=== PATIENT | female | born 1980 | race Caucasian/White ===

== ENCOUNTER 2017-10-08 14:52 | Emergency (ER) | payer BC ==
[2017-10-08 14:58] VITALS: BP 122/66
== END 2017-10-08 16:20 | disposition left against medical advice (07) ==
LOC: ED 14:52
DX: R10.9 Unspecified abdominal pain (principal); Z53.21 Procedure and treatment not carried out due to patient leaving prior to being seen by health care provider

== ENCOUNTER 2018-11-22 15:05 | Emergency (ER) | payer BC ==
[2018-11-22 19:41] LABS: ABS Basophils 0.1 10^3/ul (0-0.2); ABS Eosinophils 0.2 10^3/ul (0-0.6); ABS Monocytes 0.7 10^3/ul (0-0.8); ABS Neutrophils 7.2 10^3/ul (1.5-7.7); Eosinophil % 1.8 %; Hematocrit 35 % (35-47); Hemoglobin 11.7 g/dL (12.0-16.0); Lymphocyte % 26.4 %; Mean Corpuscular HGB Conc 33 g/dL (31-36); Mean Corpuscular Hemoglobin 33 pg (27-31); Mean Corpuscular Volume 99 fL (80-97); Mean Platelet Volume 7.7 fL (7.4-10.4); Platelet Count 351 10^3/uL (150-450); Red Blood Count 3.58 10^6 /uL (3.70-4.87); Red Cell Distribution Width 14 % (10.5-15); White Blood Count 11.2 10^3/uL (3.5-10.8)
[2018-11-22 19:47] LABS: Urine Appearance Clear; Urine Bacteria 2+ (Absent); Urine Bilirubin Negative (Negative); Urine Blood 1+ (Negative); Urine Color Yellow; Urine Glucose Negative (Negative); Urine Ketones Negative (Negative); Urine Nitrite Negative (Negative); Urine Protein Negative (Negative); Urine Red Blood Cell Trace(0-2/hpf) (Absent); Urine Specific Gravity 1.017 (1.010-1.030); Urine Squamous Epithelial Cell Present (Absent); Urine Urobilinogen Negative (Negative); Urine White Blood Cell Absent (Absent)
[2018-11-22 19:58] LABS: Albumin 4.6 g/dL (3.2-5.2); Albumin/Globulin Ratio 1.3 (1-3); BUN/Creatinine Ratio 27.3 (8-20); C Reactive Protein 22.46 mg/L (<8.01); Calcium 9.8 mg/dL (8.6-10.3); EGFR African American 121.9 (>60); EGFR Non-African American 100.8 (>60); Globulin 3.5 g/dL (2-4); Potassium 3.9 mmol/L (3.5-5.0); Total Bilirubin 0.3 mg/dL (0.2-1.0); Total Protein 8.1 g/dL (6.4-8.9)
--- NOTE | 2018-11-22 20:00 | ED ---
Abdominal Pain/Female - HPI Summary HPI Summary: The patient is a 38 y/o F presenting to [facility] with a chief complaint of sudden onset pelvic pain starting three days ago that moved into the lower abdomen last night, primarily in the RLQ. The pain is intermittent, but when palpated, the pain is aggravated. She attempted to relieve the pain using a heating pad to mild relief. Currently, the pain is rated 5/10 in severity, and is described as a pressure. She additionally notes that she had an episode of hematochezia last week, and she has since been mostly constipated with a few episodes of small, loose BMs. She denies nausea, vomiting, dietary changes, and vaginal bleeding. She also states that she had pulled some abdominal muscles a few weeks ago secondary to a cough due to a common cold. She reports that she went to urgent care today for her symptoms, but they were concerned due to the site of pain. She has an IUD with LNMP prior to April 2018. No medical hx, but uses 0.5mg Lorazepam as sleeping aid occasionally. Surgical hx of ectopic and Cesarian section. No appendectomy or cholecystectomy. Current smoker, weekly EtOH, no substance use. - History of Current Complaint Chief Complaint: EDAbdPain Stated Complaint: ABD PAIN PER PT Time Seen by Provider: 11/22/18 19:48 Hx Obtained From: Patient Onset/Duration: Sudden Onset, Lasting Days - three, Worse Since - last night Timing: Intermittent Episode Lasting - minutes Severity Initially: Mild Severity Currently: Moderate Pain Intensity: 5 Pain Scale Used: 0-10 Numeric Location: Other - pelvic pain Radiates: Yes Radiates to: Other - bilateral lower quadrants with pain worse on the right Character: Other: - pressure Aggravating Factor(s): Other: - palpation of lower abd Alleviating Factor(s): Other: - mild relief with heating pad Associated Signs and Symptoms: Positive: Constipation, Blood in Stool - one episode a week ago, Diarrhea. Negative: Decreased Appetite, Vaginal Bleeding, Nausea, Vomiting Allergies/Adverse Reactions: Allergies Allergy/AdvReac Type Severity Reaction Status Date / Time No Known Allergies Allergy Verified 11/22/18 15:25 Home Medications: Home Medications LORazepam [Lorazepam] 0.5 mg PO BEDTIME PRN 11/22/18 [History Confirmed 11/22/18 ] PMH/Surg Hx/FS Hx/Imm Hx Endocrine/Hematology History: Denies: Hx Diabetes Cardiovascular History: Denies: Hx Hypercholesterolemia, Hx Hypertension - Surgical History Surgery Procedure, Year, and Place: ectopic , Cesarian section Infectious Disease History: No Infectious Disease History: Denies: Traveled Outside the [place] in Last 30 Days - Family History Known Family History: Negative: Hypertension, Diabetes - Social History Alcohol Use: Weekly Alcohol Amount: one day/wk Hx Substance Use: No Substance Use Type: Reports: None Hx Tobacco Use: Yes Smoking Status (MU): Current Some Day Smoker Type: Cigarettes Review of Systems Positive: Abdominal Pain - pelvic, RL, Diarrhea - small BM but loose (in last week), Other - POSITIVE: one episode of hematochezia, constipation; NEGATEIVE: dietary changes. Negative: Vomiting, Nausea Positive: other - NEGATIVE: vaginal bleeding All Other Systems Reviewed And Are Negative: Yes Physical Exam - Summary Physical Exam Summary: Appearance: Well-appearing, Well-nourished, lying in bed comfortably Skin: Warm, dry, no obvious rash Eyes: sclera anicteric, no conjunctival pallor ENT: mucous membranes moist, pharynx appears normal Neck: Supple, nontender Respiratory: Clear to auscultation, no signs of respiratory distress Cardiovascular: Normal S1, S2. No murmurs. Normal distal pulses in tibial and radial bilaterally. Abdomen: Soft, mild tenderness in the RLQ, negative peritoneal signs, normal active bowel sounds present Musculoskeletal: Normal, Strength/ROM Intact Neurological: A&Ox3, awake and alert, mentation is normal, speech is fluent and appropriate Psychiatric: affect is normal, does not appear anxious or depressed Triage Information Reviewed: Yes Vital Signs On Initial Exam: Initial Vitals Temp Pulse Resp BP Pulse Ox 99.1 F 64 16 121/76 99 11/22/18 15:21 11/22/18 15:21 11/22/18 15:21 11/22/18 15:21 11/22/18 15:21 Vital Signs Reviewed: Yes Diagnostics - Vital Signs Vital Signs Temp Pulse Resp BP Pulse Ox 11/22/18 18:46 97.7 F 66 16 115/74 100 11/22/18 17:07 98.7 F 56 16 117/67 100 11/22/18 15:21 99.1 F 64 16 121/76 99 - Laboratory Lab Results: Lab Results 11/22/18 11/22/18 Range/Units 18:35 19:28 WBC 11.2 H (3.5-10.8) 10^3/uL RBC 3.58 L (3.70-4.87) 10^6 /uL Hgb 11.7 L (12.0-16.0) g/dL Hct 35 (35-47) % MCV 99 H (80-97) fL MCH 33 H (27-31) pg MCHC 33 (31-36) g/dL RDW 14 (10.5-15) % Plt Count 351 (150-450) 10^3/uL MPV 7.7 (7.4-10.4) fL Neut % (Auto) 64.5 % Lymph % (Auto) 26.4 % [place] % (Auto) 6.6 % Eos % (Auto) 1.8 % Baso % (Auto) 0.7 % Absolute Neuts (auto) 7.2 (1.5-7.7) 10^3/ul Absolute Lymphs (auto) 3.0 (1.0-4.8) 10^3/ul Absolute Monos (auto) 0.7 (0-0.8) 10^3/ul Absolute Eos (auto) 0.2 (0-0.6) 10^3/ul Absolute Basos (auto) 0.1 (0-0.2) 10^3/ul Absolute Nucleated RBC 0.0 10^3/ul Nucleated RBC % 0.0 Urine Color Yellow Urine Appearance Clear Urine pH 5.0 (5-9) Ur Specific [place] 1.017 (1.010-1.030) Urine Protein Negative (Negative) Urine Ketones Negative (Negative) Urine Blood 1+ A (Negative) Urine Nitrate Negative (Negative) Urine Bilirubin Negative (Negative) Urine Urobilinogen Negative (Negative) Ur Leukocyte Esterase Negative (Negative) Urine WBC (Auto) Absent (Absent) Urine RBC (Auto) Trace(0-2/hpf) (Absent) Ur Squamous Epith Cells Present A (Absent) Urine Bacteria 2+ A (Absent) Urine Glucose Negative (Negative) Result Diagrams: 11/22/18 18:35 11/22/18 18:35 Lab Statement: Any lab studies that have been ordered have been reviewed, and results considered in the medical decision making process. - Ultrasound No standard instances Ultrasound Interpretation Completed By: Radiologist Summary of Ultrasound Findings: Transvaginal US: 1. 4.5 x 3.2 x 4.1 cm right ovarian cyst. 2. Small amount of free fluid adjacent to right ovary. 3. IUD in endometrial cavity. ED physician has reviewed this radiology report. Re-Evaluation - Re-Evaluation First Eval Re-Evaluation Time: 20:45 Comment: I discussed the results of the US and discharge with the patient. Abdominal Pain Fem Course/Dx - Course Course Of Treatment: The patient is a 38 y/o F presenting to [facility] with a chief complaint of intermittent episodes of sudden onset pelvic pain starting three days ago that moved into the lower abdomen as a pressure last night, primarily in the RLQ. She additionally c/o one episode of hematochezia one week ago with a few episodes of small, loose BMs since. She denies nausea, vomiting, dietary changes, and vaginal bleeding. Upon physical exam, the patient exhibits mild tenderness in the RLQ and negative peritoneal signs. Blood work reveals WBC of 11.2, RBC of 3.58, hgb of 11.7, MCV of 99, MCH of 33, BUN/creatinine ratio of 27.3, lactic acid of 0.4, alkaline phosphatase of 29, CRP of 22.46, and lipase of 10 but otherwise no acute abnormalities. UA reveals 1+ blood, 2+ bacteria, and presence of squamous epithelial cells. Transvaginal US reveals right ovarian cyst. She will be discharged home with dx of ovarian cyst. She will follow up with her PCP and tobacco sprayer as needed. She agrees with this plan and understands the need for return to the ED for any new or worsening symptoms. - Diagnoses Provider Diagnoses: Ovarian cyst Discharge - Sign-Out/Discharge Documenting (check all that apply): Patient Departure - Patient will be discharged home. Patient Received Moderate/Deep Sedation with Procedure: No - Discharge Plan Condition: Good Disposition: HOME Patient Education Materials: Ovarian Cyst (ED) Referrals: Miryam Dowell NP [Primary Care Provider] - 3 Days Additional Instructions: If your symptoms persist or worsen I would recommend checking in with your tobacco sprayer. Usually ovarian cysts heal over a period of a few days to a week, occasionally longer, but sometimes they require surgery. I do not feel this is something more urgent like appendicitis. RETURN TO THE EMERGENCY DEPARTMENT FOR ANY NEW OR WORSENING SYMPTOMS. - Billing Disposition and Condition Condition: GOOD Disposition: Home - Attestation Statements Document Initiated by Lane: Yes Documenting Scribe: Luci Quezada Provider For Whom Lane is Documenting (Include Credential): Dr. Bandar Ortega MD Scribe Attestation: I, jonatan Arciniegaed for Dr. Bandar Ortega MD on 11/23/18 at 0652. Scribe Documentation Reviewed: Yes Provider Attestation: The documentation as recorded by the Luci ye accurately reflects the service I personally performed and the decisions made by me, Dr. Bandar Ortega MD Status of Scribe Document: Viewed
[2018-11-22 20:04] LABS: HCG Pregnancy 0.6 mIU/mL
[2018-11-22 20:53] VITALS: BP 116/72
== END 2018-11-22 20:55 | disposition home or self-care (01) ==
LOC: ED 15:05
DX: N83.201 Unspecified ovarian cyst, right side (principal); F17.210 Nicotine dependence, cigarettes, uncomplicated; Z97.5 Presence of (intrauterine) contraceptive device
CPT/HCPCS: 36415; 76830; 80053; 81003; 81015; 83605; 83690; 84702; 85025; 86140; 87086; 99283